=== PATIENT | female | born 2000 | race Caucasian/White ===

== ENCOUNTER 2022-04-14 08:38 | Outpatient (CLI) | payer BC, SELFPAY ==
[2022-04-14 09:41] LABS: Clue Cells No Clue Cells Seen (None Seen); Trichomonas No Trichomonas Seen (None Seen); Yeast No Yeast Seen (None Seen)
[2022-04-14 10:51] LABS: Hepatitis B Surface Antigen* Negative (Negative)
[2022-04-14 11:00] LABS: HIV 1/2/P24 Combo Screen* Negative (Negative)
[2022-04-14 11:08] LABS: Hepatitis C Virus Antibody* Negative (Negative)
[2022-04-14 14:52] LABS: Chlamydia DNA Amplified* NOT DETECTED (No Detected); GC DNA Amplified* NOT DETECTED (No Detected)
[2022-04-16 16:57] LABS: Rapid Plasma Reagin (RPR) Non Reactive (Non Reactive)
== END 2022-04-14 08:39 | disposition home or self-care (01) ==
PROVIDERS: Visit Provider Registered Nurse
DX: Z11.3 Encounter for screening for infections with a predominantly sexual mode of transmission (principal); Z11.4 Encounter for screening for human immunodeficiency virus [HIV]
CPT/HCPCS: 86592; 86703; 86803; 87210; 87340; 87491; 87591

== ENCOUNTER 2023-09-18 18:11 | Outpatient (CLI) | payer BC, SELFPAY ==
[2023-09-18 22:08] LABS: Chlamydia DNA Amplified* NOT DETECTED (No Detected); GC DNA Amplified* NOT DETECTED (No Detected)
== END 2023-09-18 18:12 | disposition home or self-care (01) ==
LOC: NFLDREF 18:12
PROVIDERS: Visit Provider Registered Nurse
DX: Z11.3 Encounter for screening for infections with a predominantly sexual mode of transmission (principal)
CPT/HCPCS: 87491; 87591